=== PATIENT | female | born 1985 | race Hispanic/Latino ===

== ENCOUNTER → 2025-04-06 | Outpatient (REF) | payer OTHER ==
[~2025-04-06] MED LIST: AMLODIPINE BESY10 MG PO; ZESTRIL10 MG PO
== END ==
LOC: US 09:22
PROVIDERS: ATTEND Nurse Practitioner Family
DX: R10.9 Unspecified abdominal pain (principal)
CPT/HCPCS: 76700; 76856; 93976

== ENCOUNTER → 2025-04-07 | Day surgery (SDC) | payer OTHER ==
[~2025-04-07] MED LIST changes: +GLYCOPYRROLATE INJ 0.2 MG/ML VIAL ONE; +MIDAZOLAM HCL 2 MG/2 ML VIAL ONE; +PROPOFOL IV EMULSION 10 MG/ML 20 ML VIAL ONE
[2025-04-07] MEDS: LACTATED RINGER'S 1,000 ML ONE (09:24)
[2025-04-07 10:45] VITALS: BP 116/80; PULSE 83; RESP 16; TEMP 97.6; O2SAT 98
== END | disposition home or self-care (01) ==
LOC: OR 07:16
PROVIDERS: ATTEND Internal Medicine Gastroenterology
DX: K29.50 Unspecified chronic gastritis without bleeding (principal); K31.A11 Gastric intestinal metaplasia without dysplasia, involving the antrum; K22.9 Disease of esophagus, unspecified; K44.9 Diaphragmatic hernia without obstruction or gangrene; K31.7 Polyp of stomach and duodenum; K57.30 Diverticulosis of large intestine without perforation or abscess without bleeding; K64.8 Other hemorrhoids; K21.9 Gastro-esophageal reflux disease without esophagitis; I10 Essential (primary) hypertension; D64.9 Anemia, unspecified; Z79.899 Other long term (current) drug therapy; Z01.810 Encounter for preprocedural cardiovascular examination; Z01.818 Encounter for other preprocedural examination
CPT/HCPCS: 43239; 45378; 81025; 93005; J2250